=== PATIENT | female | born 1975 | race Caucasian/White ===

== ENCOUNTER 2017-05-19 11:47 | Emergency (ER) | payer MEDICAID ==
[~2017-05-19] VITALS: Ht 162.6 cm; Wt 63.0 kg
[~2017-05-19 11:47] MED LIST: ALPR0.5T PO; FAMO40TA52 PO; MAG355OR14 PO
[2017-05-19 11:50] VITALS: Ht 162.6 cm; Wt 63.0 kg
[2017-05-19] MEDS ORDERED: IBUPROFEN 800 MG TAB PO ONE (13:00)
[2017-05-19 13:29] LABS: BASOPHILS % 0.4 % (0.0-2.0); EOSINOPHILS # 0.1 10^3/ul (0.0-0.5); EOSINOPHILS % 1.4 % (0.0-7.0); HEMATOCRIT 35.3 % (37.0-47.0); HEMOGLOBIN 11.8 g/dl (12.0-16.0); LYMPHOCYTES % 28.1 % (15.0-51.0); MEAN CORPUSCULAR HEMOGLOBIN 31.8 pg (29.0-33.0); MEAN CORPUSCULAR HGB CONC 33.4 g/dl (32.0-37.0); MEAN CORPUSCULAR VOLUME 95.1 fl (82.0-101.0); MEAN PLATELET VOLUME 10.4 fl (7.4-10.4); MONOCYTE # 0.6 10^3/ul (0.3-0.9); MONOCYTES % 8.8 % (0.0-11.0); PLATELET COUNT 232 10^3/UL (140-415); RED BLOOD COUNT 3.71 10^6/ul (4.20-5.40); RED CELL DISTRIBUTION WIDTH 12.8 % (11.5-14.5); WHITE BLOOD COUNT 7.1 10^3/ul (4.8-10.8)
[2017-05-19 13:49] LABS: ALBUMIN 4.4 g/dl (3.3-4.9); ALBUMIN/GLOBULIN RATIO 1.1; BILIRUBIN,INDIRECT 0.5 mg/dl (0-1.1); BILIRUBIN,TOTAL 0.5 mg/dl (0.2-1.3); CREATININE 0.76 mg/dl (0.44-1.00); POTASSIUM 3.8 mmol/L (3.5-5.1); TOTAL PROTEIN 8.4 g/dl (6.1-8.1)
[2017-05-19 13:55] LABS: ADD UMIC YES; UR ASCORBIC ACID 40 mg/dL (NEGATIVE); UR BILIRUBIN (Dip) NEGATIVE (NEGATIVE); UR BLOOD (Dip) 3+ mg/dL (NEGATIVE); UR CLARITY SLIGHTLY CLOUDY (CLEAR); UR COLOR YELLOW (YELLOW); UR GLUCOSE (Dip) NEGATIVE (NEGATIVE); UR KETONES (Dip) NEGATIVE (NEGATIVE); UR LEUKOCYTE ESTERASE (Dip) TRACE Leu/ul (NEGATIVE); UR NITRITE (Dip) NEGATIVE (NEGATIVE); UR RBC > 182 /HPF (0-5); UR SPECIFIC GRAVITY (Dip) 1.018 (1.003-1.030); UR TOTAL PROTEIN (Dip) NEGATIVE (NEGATIVE); UR UROBILINOGEN (Dip) 1+ mg/dL (NEGATIVE)
--- NOTE | 2017-05-19 16:29 | RADRPT ---
PROCEDURE: US Pelvis CLINICAL INDICATION: Abdominal Pain TECHNIQUE: Multiple sonographic images of the pelvis were obtained utilizing a transabdominal and endovaginal technique. The images were reviewed on a PACS workstation. COMPARISON: None. LMP: 05/16/2017 FINDINGS: The uterus measures 8.4 x 6.2 x 5.9 cm. The endometrial echo complex measures 7 mm in thickness. A n appropriately positioned intrauterine device is noted with its superior margin at the level of the fundal apex. A 9 mm subserosal posterior fibroid is noted at the level of the upper body. There is also a 1.1 cm subserosal posterior fibroid at the level of the upper body. The right ovary measures 2.3 x 1.7 x 1.8 cm. The left ovary measures 2.5 x 1.7 x 2.0 cm. There is no rmal vascular flow in both ovaries. No significant ovarian lesions are seen. No significant pelvic free fluid is identified. IMPRESSION: 2 uterine fibroids are identified measuring up to 1.1 cm. An appropriately positioned intrauterine device is noted. Bilateral ovaries and adnexa are unremarkable. RPTAT: EE Physician Mohti Date Time Electronically viewed and signed by Physician Mohit on 05/19/2017 16:28 /
[2017-05-19] MEDS ORDERED: NAPR-260 PO (16:54)
--- NOTE | 2017-05-19 17:47 | ERD ---
ER Documentation Chief Complaint Date/Time DATE: 05/19/17 TIME: 17:43 Chief Complaint LT LOWER ABD PAIN WITH NUASEA/VOMITING X 2 DAYS HPI 42-year-old female coming in complaining of left pelvic pain 2 days. Last normal menstrual period 2 days ago. Denies vomiting. Denies nausea. Denies fever. Last bowel movement was this morning. Took ibuprofen with relief. Patient has had abdominal pain like this before but wanted to be evaluated. Pain is located in her left pelvic region. ROS All systems reviewed and are negative except as per history of present illness. Medications Home Meds Active Scripts Naproxen* (Naprosyn*) 500 Mg Tablet, 500 MG PO BID Y for PAIN AND/OR INFLAMMATION, #30 TAB Prov:SANDHYA CASTILLO PA-C 05/19/17 Alprazolam* (Xanax*) 0.5 Mg Tab, 0.5 MG PO TID for ANXIETY, #12 TAB Prov:SHANEL SALEH MD 08/31/16 Famotidine* (Famotidine*) 40 Mg Tablet, 40 MG PO DAILY, #30 TAB Prov:SHANEL SALEH MD 08/31/16 Mag Hydrox/Al Hydrox/Simeth (Maalox Advanced Suspension) 355 Ml Oral.susp, 2 TSP PO TID for PAIN, #24 OZ Prov:SHANEL SALEH MD 08/31/16 Allergies Allergies: Coded Allergies: No Known Allergy (Unverified , 08/31/16) PMhx/Soc History of Surgery: No Anesthesia Reaction: No Hx Neurological Disorder: No Hx Respiratory Disorders: No Hx Cardiac Disorders: No Hx Psychiatric Problems: No Hx Miscellaneous Medical Probl: No Hx Alcohol Use: No Hx Substance Use: No Hx Tobacco Use: No Smoking Status: Never smoker Physical Exam Vitals Vital Signs Date Time Temp Pulse Resp B/P Pulse Ox O2 Delivery O2 Flow Rate FiO2 05/19/17 11:50 98.2 78 18 111/59 98 Physical Exam GENERAL: The patient is well-appearing, well-nourished, in no acute distress CHEST: Clear to auscultation bilaterally. There are no rales, wheezes or rhonchi. HEART: Regular rate and rhythm. No murmurs, clicks, rubs or gallops. No S3 or S4. ABDOMEN: Mild tenderness to palpation the left lower adnexa. No rebound tenderness. Normoactive bowel sounds are auscultation. No CVA tenderness. No flank pain Result Diagram: 05/19/17 1300 05/19/17 1300 Results 24 hrs Laboratory Tests Test 05/19/17 13:00 White Blood Count 7.110^3/ul Red Blood Count 3.7110^6/ul Hemoglobin 11.8g/dl Hematocrit 35.3% Mean Corpuscular Volume 95.1fl Mean Corpuscular Hemoglobin 31.8pg Mean Corpuscular Hemoglobin Concent 33.4g/dl Red Cell Distribution Width 12.8% Platelet Count 00853^3/UL Mean Platelet Volume 10.4fl Neutrophils % 61.0% Lymphocytes % 28.1% Monocytes % 8.8% Eosinophils % 1.4% Basophils % 0.4% Nucleated Red Blood Cells % 0.0/100WBC Neutrophils # (Manual) 4.310^3/ul Lymphocytes # 2.010^3/ul Monocytes # 0.610^3/ul Eosinophils # 0.110^3/ul Basophils # 0.010^3/ul Nucleated Red Blood Cells # 0.010^3/ul Urine Color YELLOW Urine Clarity SLIGHTLY CLOUDY Urine pH 6.0 Urine Specific [place] 1.018 Urine Ketones NEGATIVEmg/dL Urine Nitrite NEGATIVEmg/dL Urine Bilirubin NEGATIVEmg/dL Urine Urobilinogen 1+mg/dL Urine Leukocyte Esterase TRACELeu/ul Urine Microscopic RBC > 182/HPF Urine Microscopic WBC 13/HPF Urine Hemoglobin 3+mg/dL Urine Glucose NEGATIVEmg/dL Urine Total Protein NEGATIVEmg/dl Sodium Level 142mmol/L Potassium Level 3.8mmol/L Chloride Level 105mmol/L Carbon Dioxide Level 28mmol/L Anion Gap 13 Blood Urea Nitrogen 10mg/dl Creatinine 0.76mg/dl Glucose Level 88mg/dl Calcium Level 9.0mg/dl Total Bilirubin 0.5mg/dl Direct Bilirubin 0.00mg/dl Indirect Bilirubin 0.5mg/dl Aspartate Amino Transf (AST/SGOT) 36IU/L Alanine Aminotransferase (ALT/SGPT) 49IU/L Alkaline Phosphatase 74IU/L Total Protein 8.4g/dl Albumin 4.4g/dl Globulin 4.00g/dl Albumin/Globulin Ratio 1.10 Lipase 75U/L Serum HCG, Qualitative NEGATIVE Current Medications Medications (Trade) Dose Ordered Sig/Carlitos Route PRN Reason Start Time Stop Time Status Last Admin Dose Admin Ibuprofen (Motrin) 800 mg ONCE ONCE PO 05/19/17 13:00 05/19/17 13:01 DC 05/19/17 13:31 Procedures/MDM DIAGNOSTIC IMAGING REPORT Patient: FARIHA MEZA : 1975 Age: 42 Sex: F MR #: [id number] DOS: 05/19/17 1250 Ordering MD: MIGUELINA CASTILLO PA-C Location: [facility] Room/Bed: PROCEDURE: US Pelvis CLINICAL INDICATION: Abdominal Pain TECHNIQUE: Multiple sonographic images of the pelvis were obtained utilizing a transabdominal and endovaginal technique. The images were reviewed on a PACS workstation. COMPARISON: None. LMP: 05/16/2017 FINDINGS: The uterus measures 8.4 x 6.2 x 5.9 cm. The endometrial echo complex measures 7 mm in thickness. An appropriately positioned intrauterine device is noted with its superior margin at the level of the fundal apex. A 9 mm subserosal posterior fibroid is noted at the level of the upper body. There is also a 1.1 cm subserosal posterior fibroid at the level of the upper body. The right ovary measures 2.3 x 1.7 x 1.8 cm. The left ovary measures 2.5 x 1.7 x 2.0 cm. There is normal vascular flow in both ovaries. No significant ovarian lesions are seen. No significant pelvic free fluid is identified. IMPRESSION: 2 uterine fibroids are identified measuring up to 1.1 cm. An appropriately positioned intrauterine device is noted. Bilateral ovaries and adnexa are unremarkable. MDM: 42-year-old female coming in complaining of left lower pelvic pain. I have low suspicion for tubo-ovarian abscess, ectopic , ovarian torsion. Patient's ultrasounds and blood work is within normal limits. Patient 's urine is negative. I will suspicion for diverticulitis, perforated diverticulitis, nephrolithiasis, UTI or pyelonephritis. Patient's exam is not concerning. Patient's imaging is within normal limits and I do not feel there is indication for CT scan at this time. Patient just started her menses and is likely having pain secondary to menses. Patient will be discharged with medication and told to follow-up with primary care within 1-2 days for close evaluation. Patient is discharged with strict ER precautions. Departure Diagnosis: Primary Impression: Pelvic pain Condition: Stable Patient Instructions: Pelvic Pain, Unknown Cause Referrals: [facility] YOU HAVE RECEIVED A MEDICAL SCREENING EXAM AND THE RESULTS INDICATE THAT YOU DO NOT HAVE A CONDITION THAT REQUIRES URGENT TREATMENT IN THE EMERGENCY DEPARTMENT. FURTHER EVALUATION AND TREATMENT OF YOUR CONDITION CAN WAIT UNTIL YOU ARE SEEN IN YOUR DOCTORS OFFICE WITHIN THE NEXT 1-2 DAYS. IT IS YOUR RESPONSIBILITY TO MAKE AN APPOINTMENT FOR FOLOW-UP CARE. IF YOU HAVE A PRIMARY DOCTOR --you should call your primary doctor and schedule an appointment IF YOU DO NOT HAVE A PRIMARY DOCTOR YOU CAN CALL OUR PHYSICIAN REFERRAL HOTLINE AT IF YOU CAN NOT AFFORD TO SEE A PHYSICIAN YOU CAN CHOSE FROM THE FOLLOWING [facility] [address] [facility] [place] [address] [facility] [address] [facility] [address] [facility] [address] [facility] [facility] [address] Additional Instructions: FOLLOW UP WITH YOUR PRIMARY CARE PHYSICIAN TOMORROW.Return to this facility if you are not improving as expected. SANDHYA CASTILLO PA-C May 19, 2017 17:47
[2017-05-20] MEDS ORDERED: HALOPERIDOL 5 MG INJ ONE ×2 (09:59→10:00)
== END 2017-05-19 16:59 | disposition home or self-care (01) ==
LOC: FTE 11:47
DX: R10.2 Pelvic and perineal pain (principal)
CPT/HCPCS: 76830; 76856; 80053; 81001; 83690; 84703; 85025; Z7502; Z7610; J1630

== ENCOUNTER 2018-05-27 12:41 | Emergency (ER) | END 2018-05-27 16:19 | disposition home or self-care (01) ==